=== PATIENT | male | born 1980 | race Caucasian/White ===

== ENCOUNTER 2024-08-12 12:52 | Emergency (ER) | payer OTHER, SELFPAY ==
[2024-08-12 12:55] VITALS: BP 140/88
--- NOTE | 2024-08-12 13:33 | ED.GENMED ---
History of Present Illness
General
Chief Complaint: Skin Problem
Source: patient
Exam Limitations: none
Time Seen by Provider: 08/12/24 13:15
History of Present Illness
History of Present Illness:
See MDM
Past History
Past History
ED Past Medical History: None
ED Past Surgical History: None
Social History
Alcohol: None
Phy Exam
Physical Exam
Physical Exam:
See MDM
Course
Vital Signs
Initial and Last Documented VS:
Initial Vital Signs
Temp Pulse Resp BP Pulse Ox
97.8 F 74 16 140/88 98
08/12/24 12:55 08/12/24 12:55 08/12/24 12:55 08/12/24 12:55 08/12/24 12:55
Last Documented Vital Signs
Temp Pulse Resp BP Pulse Ox
97.8 F 74 16 140/88 98
08/12/24 12:55 08/12/24 12:55 08/12/24 12:55 08/12/24 12:55 08/12/24 12:55
Procedures
Incision/Drainage/Joint Aspiration
Right Upper Lateral Back:
Anethesia: 1% Lidocaine with Epi
Preparation: cleaned with alcohol wipe
Type of procedure: incise
Nature of site: abscess
Description of abscess: greater than 3cm
Loculations broken up: Yes
How much fluid was obtained?: small amount
Fluid description: purulent
Treatment: left open for drainage
MDM/Problems Addressed
Differential Diagnosis Includes:
HPI and MDM Narrative:
43-year-old male presenting for evaluation of a sebaceous cyst on his right upper back. Patient states it usually drains on its own but it has enlarged. It is not draining this time and he was concerned.
On exam, he does have a sebaceous cyst. After lidocaine injection, #11 blade was used to open the cyst. Significant amount of drainage resulted in resolution of symptoms.
Since symptoms keep reoccurring, we discussed outpatient follow-up with general surgery to have the whole cyst removed. While there, we discussed having the large skin tag noted on his right axilla to be removed as well
Physical exam
General: Well appearing and non-toxic
HEENT: protecting airway
Neck: appears supple
CV: No evidence of cyanosis
Resp: No accessory muscle use
Abd: Non-distended
Extremities: No deformities
Neuro: alert
Psych: Normal affect
Skin: Sebaceous cyst to right upper back. Large skin tag to right axilla
Problems Addressed including Acute and Chronic Conditions affecting care:
1. Sebaceous cyst
Acuity: acute
Prognosis: stable
Details: I&D performed with resolution of symptoms. Given the purulence, patient placed on Bactrim
Differential Diagnosis (but not limited to): Sebaceous cyst, lipoma
Testing considered: Wound culture
Drug therapy (if applicable): OTC meds, please see d/c instruction regarding Rx drugs
Amount and/or Complexity of Data Reviewed
Clinical info obtained from: Patient
External data reviewed: N/A
Labs I independently reviewed (but not limited to): N/A
Radiology: N/A
Pulse Ox: not hypoxic
EKG independently reviewed: N/A
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
Critical Care: N/A
Risk of Complication:
Social Determinants of health: Good social support
Discussed with other providers: N/A
Escalation of Care includes Admit/Obs: After being observed in the Emergency Department, pt stable for discharge.
Occasional wrong word or 'sound a like' substitutions may have occurred due to the inherent limitations of voice recognition software. Read the chart carefully and recognize, using context, where substitutions have occurred.
*Pulse Oximetry
SaO2: 98
Oxygen Mode of Delivery: Room air
Patient hypoxic: no
*Critical Care Note
Total Time (30-74mins, 75-104mins- exclusive of procedures): Not Applicable
ED Attending Note
-
Portions of this chart may have been created with voice recognition software.� Occasional wrong word or��sound alike� substitutions may have occurred due to the inherent limitations of voice recognition software.
Discharge Plan
Departure
Patient Disposition: Home (Routine Discharge)
Date of Disposition: 08/12/24
Time of Disposition: 13:34
Patient with high blood pressure during this ER visit?: No
Discharge Problem:
Sebaceous cyst
Instructions: Skin abscess drainage
Prescriptions:
New
sulfamethoxazole-trimethoprim [Bactrim DS] 800-160 mg tablet
1 tab PO BID 7 Days Qty: 14 0RF
Referrals:
Roberto Hardy MD [Active, Surgical]
Activity Restrictions/Additional Instructions:
Please return for any worsening symptoms.
You may return at any time if you have further concerns.
Please follow up with your doctor at the first available appointment, preferably this week.
Please follow-up with the surgeon to remove the cyst and the skin tag.
Thank you for choosing [facility].
Interventions
Interventions:
*Risk Screen - Suicide Last Done: 08/12/24 12:55
*Neglect/Abuse Screening Last Done: 08/12/24 12:55
*ED- Fall Risk Assessment Last Done: 08/12/24 12:55
ED-Skin Assessment Last Done: 08/12/24 13:22
Discharge Date and Time
Print Language: KHMER
== END 2024-08-12 13:55 | disposition home or self-care (01) ==
LOC: EMR 12:52
PROVIDERS: EMERGENCY PHYSICIAN Student in an Organized Health Care Education/Training Program
DX: L72.3 Sebaceous cyst (principal)
CPT/HCPCS: 99282; 10060